=== PATIENT | female | born 1980 | race Caucasian/White ===

== ENCOUNTER 2019-02-28 00:54 | Emergency (ER) | payer OTHER ==
--- NOTE | 2019-02-28 01:06 | ED PDOC ---
Arrival/HPI - General Historian: Patient - History of Present Illness Narrative History of Present Illness (Text): 02/28/19 01:21 38yo F with PMH gastritis and anxiety presents to ED for laceration on left thumb. She claims to have been fixing to top of a broom when she cut her thumb on the stainless steel portion of the broom. She reports moderate amount of bleeding from the site. She reports pain in the wound site. She denies numbness, tingling, or weakness to the hand. She denies fever, chills, abdominal pain, nausea, vomiting, fatigue. Time/Duration: Prior to Arrival Symptom Onset: Sudden <Hugo Vasquez - Last Filed: 02/28/19 02:03> <Manuel Saul - Last Filed: 02/28/19 02:27> - General Chief Complaint: Finger,Hand,&Wrist Time Seen by Provider: 02/28/19 01:04 Past Medical History - Infectious Disease Hx of Infectious Diseases: None - Cardiac Hx Cardiac Disorders: No - Pulmonary Hx Respiratory Disorders: No - Psychiatric Hx Substance Use: No - Surgical History Hx Appendectomy: Yes Hx Cholecystectomy: Yes Hx Tonsillectomy: Yes - Anesthesia Hx Anesthesia: No <Hugo Vasquez - Last Filed: 02/28/19 02:03> Family/Social History Family/Social History: No Known Family HX Smoking Status: Current Some Days Smoker Hx Alcohol Use: No Hx Substance Use: No <Hugo Vasquez - Last Filed: 02/28/19 02:03> Allergies/Home Meds <Hugo Vasquez - Last Filed: 02/28/19 02:03> <Manuel Saul - Last Filed: 02/28/19 02:27> Allergies/Adverse Reactions: Allergies mercury (elemental) Allergy (Verified 02/28/19 01:03) ANAPHYLAXIS Penicillins Allergy (Verified 02/28/19 01:03) ANAPHYLAXIS Home Medications: Home Meds Medication Instructions Recorded Confirmed No Known Home Med 02/28/19 02/28/19 Review of Systems - Review of Systems Constitutional: Normal. absent: Fatigue Eyes: Normal ENT: Normal Respiratory: Normal. absent: SOB Cardiovascular: Normal. absent: Chest Pain Gastrointestinal: Normal. absent: Abdominal Pain Genitourinary Female: Normal Musculoskeletal: Normal Skin: Normal Neurological: Normal Endocrine: Normal Hemo/Lymphatic: Normal Psychiatric: Normal <Hugo Vasquez - Last Filed: 02/28/19 02:03> Physical Exam - Systems Exam Head: Present: Atraumatic, Normocephalic Pupils: Present: PERRL Extroacular Muscles: Present: EOMI Conjunctiva: Present: Normal Mouth: Present: Moist Mucous Membranes Neck: Present: Normal Range of Motion Respiratory/Chest: No: Respiratory Distress, Accessory Muscle Use Cardiovascular: Present: Regular Rate and Rhythm, Normal S1, S2 Upper Extremity: Present: Normal Inspection, Other (L 1st digit 3cm curved laceration reaching dermis) Lower Extremity: Present: Normal Inspection. No: Edema Neurological: Present: GCS=15, CN II-XII Intact, Speech Normal Skin: Present: Warm, Normal Color, Laceration <Hugo Vasquez - Last Filed: 02/28/19 02:03> Vital Signs Temp Pulse Resp BP Pulse Ox 02/28/19 01:06 98.5 F 69 15 108/75 100 <Manuel Saul - Last Filed: 02/28/19 02:27> Medical Decision Making ED Course and Treatment: 02/28/19 01:26 Tdap steri strips and dermabond for lac repair - Procedure PROCEDURE NOTE (Text): 02/28/19 01:58 Wound irrigated and cleaned with iodine. 1/4in steri strips placed with dermabond on top. <uHgo Vasquez - Last Filed: 02/28/19 02:03> ED Course and Treatment: Impression: Pt seen and evalauted with medical social consultant. Aware and agree with HPI, clinical findings, plan, and management. Pt, whose past medical history includes gastritis and anxiety, presented for a left thumb laceration. Plan: -- Laceration repair -- TDAP -- Reassess and disposition Laceration repair performed by medical social consultant. - Medication Orders Current Medication Orders: Discontinued Medications Tetanus/Reduced Diphtheria/Acell Pertussis (Boostrix Vaccine Inj) 0.5 ml IM .ONCE ONE Stop: 02/28/19 01:21 Last Admin: 02/28/19 01:36 Dose: 0.5 ml <Manuel Saul - Last Filed: 04/21/19 02:27> - PA / MANAGER OF PATIENT / Resident Statement / has reviewed & agrees with the documentation as recorded. / has examined the patient and agrees with the treatment plan. <DorysManuel - Last Filed: 02/28/19 02:27> Disposition/Present on Arrival - Present on Arrival Any Indicators Present on Arrival: No History of DVT/PE: No History of Uncontrolled Diabetes: No Urinary Catheter: No History of Decub. Ulcer: No History Surgical Site Infection Following: None - Disposition Have Diagnosis and Disposition been Completed?: Yes Disposition Time: 02:00 <Hugo Vasquez - Last Filed: 02/28/19 02:03> <DorysManuel - Last Filed: 02/28/19 02:27> - Disposition Diagnosis: Laceration Disposition: HOME/ ROUTINE Condition: IMPROVED Discharge Instructions (ExitCare): Laceration Repair With Glue (DC), Wound Care (DC) Additional Instructions: Follow up with your primary doctor for routine care. Allow the dermabond to dry and fall off on its own. You may wash the steri-strips with soap and water after the dermabond is removed. Allow the steri-strips to fall off on their own in 2 weeks. If you experience numbness, tingling, fever, chills, nausea, vomiting, or weakness, return to the emergency department. Referrals: Caroline Fiore MD [Staff Provider] - Follow up with primary Forms: [facility] (Greek), WORK NOTE
[2019-02-28] MEDS ORDERED: TDAP Vaccine 0.5 mL Syr IM ONE (01:20)
[2019-02-28 01:42] VITALS: BP 108/75; PULSE 69; RESP 15; TEMP 98.5; O2SAT 100
== END 2019-02-28 02:20 | disposition home or self-care (01) ==
LOC: ED 00:54
DX: S61.012A Laceration without foreign body of left thumb without damage to nail, initial encounter (principal); W45.8XXA Other foreign body or object entering through skin, initial encounter; Z23 Encounter for immunization